=== PATIENT | female | born 1950 | race Two or more races ===

== ENCOUNTER → 2020-04-22 | Outpatient (CLI) | payer MEDICARE, OTHER ==
[~2020-04-22] MED LIST: DIAZ10TA4 PO; ZOLP5TAB5 PO
== END ==
LOC: LAB 08:19
PROVIDERS: ATTEND Registered Nurse
DX: Z01.812 Encounter for preprocedural laboratory examination (principal); R13.10 Dysphagia, unspecified; Z20.828 Contact with and (suspected) exposure to other viral communicable diseases
CPT/HCPCS: C9803; U0003; 36415

== ENCOUNTER → 2020-04-26 | Day surgery (SDC) | payer MEDICARE, OTHER ==
[~2020-04-26] MED LIST changes: +IPRATRPIUM/ALBUTEROL 0.5/2.5MG 3 ML NEBU. NEB PRN; +IV RINGERS SOLUTION,LACTATED 1,000 ML IV SCH; +MIDAZOLAM HCL PF 2 MG/2 ML VIAL. IV ONE; +ONDANSETRON PF 4 MG/2 ML VIAL. IV PRN; +PROPOFOL 10,000 MCG/ML (20ML) VIAL IV ONE
[2020-04-26 10:30] VITALS: BP 152/64
--- NOTE | 2020-04-27 18:06 | PATHOLOGY ---
[facility] Accession Number: [id number] . 01 Material submitted: . PART A: stomach - ANTRUM PART B: esophagus - ESOPHAGEAL . 01 Clinical history: . A. R/O H. pylori B. R/O EOE . 02 Diagnosis: A. Gastric biopsies, antrum: - Active chronic gastritis, moderate to marked, with small foci of intestinal metaplasia and with numerous Helicobacter organisms identified. . B. Esophageal biopsy: - Segments of hyperplastic squamous esophageal mucosa and esophagogastric and gastric mucosa showing moderate chronic inflammation, consistent with reflux esophagitis. (JPM:[facility] 04/27/2020) [facility] 04/27/2020 0951 Local . 02 Comment: Sections of the gastric antral biopsy show moderate to marked active chronic inflammation with small foci of intestinal metaplasia. A properly controlled immunoperoxidase stain for Helicobacter reveals numerous Helicobacter organisms. . Sections of the esophageal biopsy primarily reveal segments of tangentially oriented hyperplastic squamous mucosa. There are also two segments of esophagogastric and gastric mucosa showing moderate chronic inflammation. The findings are consistent with reflux esophagitis. There is no evidence of an eosinophilic esophagitis. There is no evidence of Valverde's change, dysplasia, or malignancy. (JPM:[facility] 04/27/2020) . Special stain performed: Immunoperoxidase for Helicobacter on A1. . 02 Electronically signed: . Jarad Gutierrez MD, Pathologist NPI- [id number] . 01 Gross description: . A. The specimen is received in formalin, labeled "Zoë Goyo, antrum, H. pylori". Received are three segments of pale dotson soft tissue ranging in size from 0.3 to 0.6 cm in maximum dimensions. The specimen is submitted entirely in cassette A1. . B. The specimen is received in formalin, labeled "Zoë Goyo, esophagus, R/O EOE". Received are five segments of pale dotson soft tissue ranging in size from 0.2 to 0.6 cm in maximum dimensions. The specimen is submitted entirely in cassette B1. ([facility]; 04/26/2020) QAC/QAC 04/26/2020 1744 Local . 02 Pathologist provided ICD-10: K29.50, B96.81, K20.8 . 02 CPT . 849113, 952122, [id number] Specimen Comment: A courtesy copy of this report has been sent to [phone], [phone] Specimen Comment: [id number] Specimen Comment: Report sent to / DR BARNARD Specimen Comment: A duplicate report has been generated due to demographic updates. Performed at: 01 [facility] [address] [id number] MD Renan Blake MD Phone: [phone] Performed at: 02 [facility] [address] [place], [place] [id number] MD Jarad Gutierrez MD Phone: [phone]
== END | disposition home or self-care (01) ==
LOC: SURG 08:24
PROVIDERS: ATTEND Internal Medicine Gastroenterology
DX: R13.10 Dysphagia, unspecified (principal); K29.50 Unspecified chronic gastritis without bleeding; K21.0 Gastro-esophageal reflux disease with esophagitis; B96.81 Helicobacter pylori [H. pylori] as the cause of diseases classified elsewhere; F32.9 Major depressive disorder, single episode, unspecified; Z98.890 Other specified postprocedural states; Z79.899 Other long term (current) drug therapy
CPT/HCPCS: 43239; 43450; J2704; J7120

== ENCOUNTER → 2020-07-19 | Outpatient (CLI) | payer MEDICARE, OTHER ==
[2020-04-26 10:30] VITALS: BP 152/64
[~2020-07-19] MED LIST changes: -IPRATRPIUM/ALBUTEROL 0.5/2.5MG 3 ML NEBU. NEB PRN; -IV RINGERS SOLUTION,LACTATED 1,000 ML IV SCH; -MIDAZOLAM HCL PF 2 MG/2 ML VIAL. IV ONE; -ONDANSETRON PF 4 MG/2 ML VIAL. IV PRN; -PROPOFOL 10,000 MCG/ML (20ML) VIAL IV ONE
--- NOTE | 2020-07-19 09:29 | RAD ---
EXAM: Upper gastrointestinal series exam. HISTORY: 69-year-old female presents with a sensation of food getting caught within the throat when swallowing solids. The patient has undergone recent esophageal dilatation. This did not relieve her symptoms. TECHNIQUE: A memory care program resident image of the abdomen was obtained. Fluoroscopic imaging was then performed in multiple positions and obliquities during the oral administration of thin and thick barium contrast. Effervescent crystals were administered for dedicated air contrast views. 15 fluoroscopic cine images were obtained. The total fluoroscopy time was less than 2 minutes. COMPARISON: None. FINDINGS: There is no evidence of aspiration or penetration. There is pooling of contrast within a small diverticulum within the midline posterior proximal esophagus at the level of C6. This diverticulum measures approximately one vertebral body height in maximum dimension. There is clearance of contrast from the diverticulum following repeated swallowing attempts. The esophagus is normal in caliber. No intrinsic mucosal lesion is seen. There is no delayed transit of contrast into the stomach. No stricture or extravasation is seen. The gastric contour and mucosal pattern is unremarkable. There is normal emptying of contrast into the small bowel. No gastroesophageal reflux is seen. IMPRESSION: 1. Small Zenker's diverticulum. There is retention of pooled contrast within this diverticulum which clears with multiple swallowing attempts. 2. Otherwise, upper gastrointestinal series exam. Electronically signed by: Reena Baltazar MD (07/19/2020 9:26 AM) [place] [id number]
== END ==
LOC: DXRAD 07:57
PROVIDERS: ATTEND Internal Medicine Gastroenterology
DX: K22.5 Diverticulum of esophagus, acquired (principal); K26.9 Duodenal ulcer, unspecified as acute or chronic, without hemorrhage or perforation; B96.81 Helicobacter pylori [H. pylori] as the cause of diseases classified elsewhere
CPT/HCPCS: 74240